=== PATIENT | female | born 2005 | race Caucasian/White ===

== ENCOUNTER 2025-03-17 08:40 | Emergency (ER) | payer OTHER, SELFPAY ==
[2025-03-17 08:54] VITALS: BP 129/79; PULSE 86; RESP 16; TEMP 37.4; O2SAT 97; BMI 21.5
--- NOTE | 2025-03-17 09:30 | ED_ITS ---
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 She states that she has had anxiety for the past several years and has been taking Celexa for the past 4 years. She does not report any specific events that have made things worse for her but does have significant stress with school work. She denies using any street drugs or alcohol. She does not have any visual or audio hallucinations. She denies having any suicidal plans and has no such history in the past. She states that sometimes she does not sleep so well. Her primary symptoms are anxiety. She states that she feels that Celexa is not helping her enough for these symptoms. Related Data Home Medications ?Medication ?Instructions ?Recorded ?Confirmed citalopram 30 mg capsule 30 mg PO DAILY 03/17/25 03/17/25 Previous Rx's ?Medication ?Instructions ?Recorded hydroxyzine HCl 25 mg tablet 25 mg PO QID #20 tabs 03/17/25 lorazepam 0.5 mg tablet (Ativan) 0.5 mg PO BID PRN #15 tabs 03/17/25 sertraline 50 mg tablet (Zoloft) 50 mg PO DAILY #30 tabs 03/17/25 Allergies Allergy/AdvReac Type Severity Reaction Status Date / Time No Known Allergies Allergy Verified 03/17/25 08:51 Review of Systems Status of ROS: Reports: 10 or more systems reviewed and unremarkable except as noted in History and below Narrative: Constitutional: No fevers, no weight gain or loss. Eyes: No discharge. No vision changes. HENT: No congestion, no sore throat, no ear pain. Cardiovascular: No chest pain, no palpitations. Respiratory: No shortness of breath, no wheezes, no cough. Gastrointestinal: No abdominal pain, no vomiting, no diarrhea. Genitourinary: No dysuria, no hematuria. Musculoskeletal: Normal range of motion. Skin: No rashes, no pruritis. Neurological: No dizziness, weakness, sensory change, speech change. Endo/Heme/Allergies: No bruising or bleeding. No polydipsia. Pysch: no suicidality. Anxiety symptoms with some insomnia. All other systems reviewed and are negative. PFSH PFSH Social History Smoking Status: Never smoker Do you use any of these nicotine containing products: None How often do you have a drink containing alcohol: never How often do you have six or more drinks on one occasion: Never AUDIT-C Alcohol total score: 0 Non-prescribed substance use: denies use Exam Narrative: Exam Narrative: Constitutional: Well-developed, well-nourished, no acute distress. HEENT: Normocephalic, atraumatic. Neck: Normal range of motion. Nontender. Supple. Heart: Intact distal pulses. Lungs: No chest discomfort. No wheezes, rhonchi, or rales. Abdomen: Nontender. Back: Normal range of motion. Extremities: Normal range of motion. No injury. Skin: Intact. No rash. Warm. No erythema or pallor. Neurologic: No altered sensation. No weakness. Alert and oriented. Psychiatric: No suicidality. Pleasant and cooperative. Nursing notes and vitals signs are reviewed. Const: Vital Signs, click to edit/add: Vital Signs - 24 hr 03/17/25 08:54 Temperature 99.4 F Pulse Rate [Pulse Oximeter] 86 Respiratory Rate 16 Blood Pressure [Ri ght Upper Arm] 129/79 Pulse Oximetry 97 Oxygen Delivery Me thod Room Air Course Vital Signs Vital signs: Initial Vital Signs Temperature 99.4 F 03/17/25 08:54 Temperature Source Temporal Artery Scan 03/17/25 08:54 Pulse Rate 86 03/17/25 08:54 Respiratory Rate 16 03/17/25 08:54 Blood Pressure 129/79 03/17/25 08:54 Blood Pressure Mean 95 03/17/25 08:54 Pulse Oximetry 97 03/17/25 08:54 Oxygen Delivery Method Room Air 03/17/25 08:54 Vital Signs Temperature 99.4 F 03/17/25 08:54 Pulse Rate 86 03/17/25 08:54 Respiratory Rate 16 03/17/25 08:54 Blood Pressure 129/79 03/17/25 08:54 Pulse Oximetry 97 03/17/25 08:54 Oxygen Delivery Method Room Air 03/17/25 08:54 Temperature 99.4 F 03/17/25 08:54 Pulse Rate 86 03/17/25 08:54 Respiratory Rate 16 03/17/25 08:54 Blood Pressure 129/79 03/17/25 08:54 Pulse Oximetry 97 03/17/25 08:54 Oxygen Delivery Method Room Air 03/17/25 08:54 MDM - Anxiety MDM Narrative Medical decision making narrative: This patient comes in reporting worsening anxiety symptoms. She does not report any feeling of being unsafe to herself and seems appropriate for outpatient management. The patient did receive an oral dose of Ativan 0.5 mg here. I did provide prescriptions for hydroxyzine and some tablets of Ativan that can be used for anxiety symptoms as needed. She is interested in switching into a different antidepressant antianxiety medicine has Celexa is not seeming to help. She had been taking 20 mg daily and his increased to 30 mg more recently without any relief. I advised her to did decrease Celexa by 10 mg and start Zoloft 50 mg which is prescribed for her. After a week she can decrease another 10 mg of Celexa. I advised her to follow-up with her primary physician for re- evaluation and ongoing planning. Discharge Plan Discharge Clinical Impression: Anxiety Patient Disposition: Home w/ Parent or Adult Condition: Stable Additional Instructions: Use hydroxyzine and Ativan as needed and directed for anxiety symptoms. Start Zoloft 50 mg daily and decrease Celexa by 10 mg daily for a week. After 1 week you may decrease Celexa again by another 10 mg. Follow-up with primary physician for review of these medications and ongoing management. Return if worsening. Prescriptions: New lorazepam [Ativan] 0.5 mg tablet 0.5 mg PO BID PRNQty: 15 0RF hydroxyzine HCl 25 mg tablet 25 mg PO QID Qty: 20 2RF sertraline [Zoloft] 50 mg tablet 50 mg PO DAILY Qty: 30 2RF No Action citalopram 30 mg capsule 30 mg PO DAILY Stand Alone Forms: [employer] Info Instructions
[2025-03-17] MEDS: LORazepam 0.5 MG TABLET PO (09:53)
== END 2025-03-17 10:08 | disposition home or self-care (01) ==
PROVIDERS: Emergency Provider Emergency Medicine Emergency Medical Services
DX: F41.9 Anxiety disorder, unspecified (principal)
CPT/HCPCS: 99283; 99284; A9270